=== PATIENT | female | born 1980 | race American Indian/Alaskan Native ===

== ENCOUNTER 2021-02-05 20:21 | Emergency (ER) | payer MEDICAID ==
[2021-02-05] MEDS ORDERED: ACETAMINOPHEN 325 MG TAB PO ONE (21:12)
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
[2021-02-05] MEDS: IBUPROFEN 600 MG TAB PO ONE ×2 (22:31→22:34)
[2021-02-05 22:48] VITALS: BP 159/70
--- NOTE | 2021-02-06 10:37 | Electrocardiograph Report ---
[facility] Test Date: 2021-02-05 Test Time: 20:32:17 Pat Name: CHANA MARIA Department: Room: Gender: F Biometrics Consultant: ALE : 1980 Requested By: FOZIA SHRESTHA Order Number: [id number] Reading MD: Aditi Quach Measurements Intervals [place] Rate: 98 P: 78 GA: 123 QRS: -3 QRSD: 92 T: 0 QT: 368 QTc: 470 Interpretive Statements Sinus rhythm Old anterior myocardial infarction Nonspecific ST segment abnormality No previous ECG available for comparison Electronically Signed On 02-06-2021 10:36:23 EST by Aditi Quach
== END 2021-02-05 23:05 | disposition home or self-care (01) ==
LOC: ED 20:21
DX: R07.89 Other chest pain (principal); J45.909 Unspecified asthma, uncomplicated; Z88.0 Allergy status to penicillin; Z79.899 Other long term (current) drug therapy; V87.7XXA Person injured in collision between other specified motor vehicles (traffic), initial encounter; Y93.89 Activity, other specified; Y92.488 Other paved roadways as the place of occurrence of the external cause; Y99.8 Other external cause status
CPT/HCPCS: 71046; 93005; 99284